=== PATIENT | female | born 1940 ===

== ENCOUNTER → 2019-08-24 | Outpatient (CLI) | payer OTHER | LOC: SJCVC 08:00 | DX: R94.31 Abnormal electrocardiogram [ECG] [EKG] (principal); I47.1 Supraventricular tachycardia; J43.2 Centrilobular emphysema; I10 Essential (primary) hypertension; E78.5 Hyperlipidemia, unspecified; I71.4 Abdominal aortic aneurysm, without rupture; K21.9 Gastro-esophageal reflux disease without esophagitis; E03.9 Hypothyroidism, unspecified; F17.200 Nicotine dependence, unspecified, uncomplicated; Z79.899 Other long term (current) drug therapy ==

== ENCOUNTER → 2020-02-07 | Outpatient (CLI) | payer OTHER | LOC: SJCVC 16:22 | PROVIDERS: ATTEND Nuclear Medicine Nuclear Cardiology | DX: I71.4 Abdominal aortic aneurysm, without rupture (principal); I71.2 Thoracic aortic aneurysm, without rupture; I10 Essential (primary) hypertension; I47.1 Supraventricular tachycardia; J43.9 Emphysema, unspecified; E78.00 Pure hypercholesterolemia, unspecified; F17.200 Nicotine dependence, unspecified, uncomplicated ==

== ENCOUNTER → 2020-02-24 | Outpatient (CLI) | payer OTHER ==
[~2020-02-24] MED LIST: AMBIEN 5 MG TABL5 M1 PO; B12INJ IM; DILT-XR240 M1 PO; DULERA 50 MCG-513 GM INH; LEVOXYL125 MCG PO; PRILOSEC OTC20 MG PO; PROAIR DIGIHAL90 MCG INH; TRAVOPROST2.5 ML OPHTHALMIC; VITAMIN D3250 MC2 PO; WELCHOL 625 MG625 MG PO
== END ==
LOC: LAB 09:53
PROVIDERS: ATTEND Internal Medicine
DX: Z01.812 Encounter for preprocedural laboratory examination (principal); Z20.828 Contact with and (suspected) exposure to other viral communicable diseases

== ENCOUNTER → 2020-02-29 | Outpatient (CLI) | payer OTHER ==
[~2020-02-29] VITALS: Ht 170.2 cm; Wt 73.6 kg
[2020-02-29 09:24] VITALS: BP 130/78
--- NOTE | 2020-02-29 09:50 | EKG ---
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
--- NOTE | 2020-02-29 16:41 | CATHLAB ---
[facility] [place] [address] INVASIVE PROCEDURE REPORT Name: SURESH WIGGINS Room #: REG [facility]#: [id number] Admission: 02/29/20 Attend Phys: Maverick Santos MD Discharge: Date of : 36 Report #: [id number] THIS REPORT FOR: cc: FAM - Family physician unknown FAM - No family physician/PCP Wilber Hodge MD [facility] ~ APPROVED REPORT Study performed: 02/29/2020 13:43:53 Patient Details Patient Status: Out-Patient Room #: The patient is a 79 year-old female Event Personnel Wilber Hodge Treasury Management Sales Consultant, Ruslan Mai RN RN, Yesenia Martin RTR Monitor, Rosa Maria Valdes RT(R)() Shaina Sutton Ashley RN turbine assembler Performed Art Access - R femoral artery* FFR 0001173 FFR Left Heart Cath w/or w/o Coronaries [id number] [facility] Hemostasis w/ Mynx 43192 Initial Mod Sed Same Phys/QHP Gr5y 398105 38057 Mod Sed Same Phys/QHP Ea 168313 Procedure Narrative The right coronary system was accessed and visualized with a JR4 catheter. The left coronary system was accessed and visualized with a JL5 catheter. The left ventricle was accessed and visualized with a PIGTAIL catheter. Left ventriculogram was performed in 30 degree projection. Closure device was deployed with a Fr MYNXGRIP 6/7F #[id number]. The patient tolerated the procedure well and there were no complications associated with the procedure. There was no hematoma. Intraoperative Conscious Sedation Sedation start time: 12:29 Case end Time: 15:04 Fentanyl 125 mcg Versed 3.0 mg Sedation is a combined total for the IR procedure and the CATH procedure. Fluoro Time: 23.13 minutes Dose: DAP 13084.[address] [facility] [place] [address] INVASIVE PROCEDURE REPORT Name: SURESH WIGGINS [facility] #: [id number] Admission: 02/29/20 Attend Phys: Maverick Santos, Discharge: Date of : 36 Report #: [id number] Contrast Type and Amount: Visipaque 148 ml Coronary Angiography The patient's coronary anatomy is right dominant. Diagnostic Cath Left Main Normal left main LAD Moderately calcified proximal LAD. Proximal LAD exhibited at moderately long, variable 50-65% stenosis. This was not flow-limiting by FFR assessment 0.95 Diagonal 1 Small to moderate sized first diagonal branch with mild plaquing Circumflex Large but nondominant circumflex comprised of four marginal branches OM1 Large first marginal branch with mild proximal plaquing OM2 Small second marginal branch, angiographically normal OM3 Moderate size third marginal branch, distally arising, angiographically normal Right Coronary Dominant right coronary with mild 30-40% mid vessel plaquing R PDA Normal posterior descending RPLV Small, normal posterior lateral branch Left Ventriculography The left ventricle is normal in size with normal contractility. The left ventricular ejection fraction is estimated to be 60-65%. Left ventricular wall motion abnormalities are not present. There is no mitral insufficiency. Hemodynamics The aortic pressure is 145/85 mmHg with a mean of 107 mmHg. The left ventricular pressure is 150/6 mmHg with a mean of mmHg. The left ventricular end diastolic pressure is 22 mmHg. PCI Technique Lesion Anticoagulation was achieved with Heparin. A VISTA 6FR JL5 #458018 Guide Catheter was used to engage the ostium. A [place] Pressure Wire 175 cm [id number] Interventional Guidewire was used to cross the lesion. BALLOON DILATION Pre-FFR 1.0. Post-FFR 0.95. No intervention. Conclusion [facility] [address] [place] [address] INVASIVE PROCEDURE REPORT Name: SURESH WIGGINS Room #: REG CL [facility]#: [id number] Admission: 02/29/20 Attend Phys: Maverick Santos, Discharge: Date of : 36 Report #: [id number] 1. Normal global and regional left ventricular systolic function. EF 65%. 2. Left main normal 3. Moderately long variable 50-65% proximal LAD stenosis. FFR 0.95 4. Mild plaquing in a large, nondominant circumflex 5. Dominant right coronary with 30-40% mid vessel plaquing Recommendations Smoking Cessation Aggressive Medical Therapy <ELECTRONICALLY SIGNED> By: Wilber Hodge MD, FACC 02/29/20 1640 1640 1640 Wilber Hodge MD, FACC /INF
== END | disposition home or self-care (01) ==
LOC: CATH 08:19
PROVIDERS: ATTEND Nuclear Medicine Nuclear Cardiology
DX: I25.10 Atherosclerotic heart disease of native coronary artery without angina pectoris (principal); I71.4 Abdominal aortic aneurysm, without rupture; I70.1 Atherosclerosis of renal artery; I70.8 Atherosclerosis of other arteries; I10 Essential (primary) hypertension; E78.5 Hyperlipidemia, unspecified; J44.9 Chronic obstructive pulmonary disease, unspecified; K21.9 Gastro-esophageal reflux disease without esophagitis; F17.210 Nicotine dependence, cigarettes, uncomplicated; Z98.890 Other specified postprocedural states; Z79.899 Other long term (current) drug therapy; Z82.49 Family history of ischemic heart disease and other diseases of the circulatory system; Z90.49 Acquired absence of other specified parts of digestive tract; Z88.0 Allergy status to penicillin

== ENCOUNTER → 2021-01-31 | Outpatient (CLI) | payer OTHER | LOC: SJCVC 13:07 | PROVIDERS: ATTEND Internal Medicine | DX: I49.3 Ventricular premature depolarization (principal); I47.1 Supraventricular tachycardia; I10 Essential (primary) hypertension; E78.5 Hyperlipidemia, unspecified; I71.2 Thoracic aortic aneurysm, without rupture; I71.4 Abdominal aortic aneurysm, without rupture; J43.2 Centrilobular emphysema; K21.9 Gastro-esophageal reflux disease without esophagitis; E03.9 Hypothyroidism, unspecified; F17.201 Nicotine dependence, unspecified, in remission; Z72.89 Other problems related to lifestyle; Z88.0 Allergy status to penicillin; Z79.899 Other long term (current) drug therapy ==